=== PATIENT | female | born 1990 | race Caucasian/White ===

== ENCOUNTER 2017-09-22 23:58 | Inpatient (IN) | payer MEDICAID ==
[2017-09-23] VITALS (36 sets, daily range): BP systolic 114–131; BP diastolic 67–80; PULSE 62–89; RESP 18–20; TEMP 98.1–98.5; O2SAT 99–100
[2017-09-23 01:37] LABS: BILIRUBIN, URINE NEG (NEG); BLOOD, URINE NEG (NEG); GLUCOSE,URINE NEG (NEG); KETONE, URINE NEG (NEG); NITRITE,URINE NEG (NEG); PH, URINE 6.5 (5.0-8.5); SQUAMOUS EPITHELIAL CELL URINE 6 /hpf (0-5); URINE COLOR LIGHT-YELLOW (YELLW/STRAW); URINE LEUKOCYTE ESTERASE NEG (NEG)
[2017-09-23] MEDS ORDERED: LACTATED RINGER'S 1000 ML INJ 1,000 ML IV PRN (09:13)
[2017-09-23] MEDS ORDERED: LACTATED RINGER'S 1000 ML INJ 1,000 ML IV SCH ×3 (09:13→16:46)
[2017-09-23] MEDS ORDERED: SODIUM CHLORID 0.9% 500 ML INJ 500 ML IV PRN (09:15)
[2017-09-23] MEDS ORDERED: LIDOCAINE HCL 1% 50 ML VIAL I-DERMAL PRN (09:15)
[2017-09-23] MEDS ORDERED: CITRIC ACID-SODIUM CITRATE LIQ 30 ML UDC PO SCH (09:15)
[2017-09-23] MEDS ORDERED: ONDANSETRON HCL 4 MG/2 ML VIAL IV PUSH PRN ×2 (09:15→12:00)
[2017-09-23] MEDS ORDERED: LACTATED RINGER'S 1000 ML INJ 1,000 ML IV ONE ×2 (09:17→12:00)
[2017-09-23] MEDS ORDERED: SODIUM CHLOR 0.9% 1000 ML INJ 1,000 ML IV PRN (09:33)
--- NOTE | 2017-09-23 09:45 | PD ---
HPI Chief Complaint CTX Date Seen: Sep 23, 2017 Time Seen: 07:00 Travel History International Travel<30 Days: No Contact w/Intl Traveler<30Days: No History of Present Illness HPI Patient is a 27 year old who presents to OB ED with contractions x 2 days. EDC 09/25/2017. She denies leakage of fluid, vaginal bleeding. She feels baby moving regularly. She denies LINN/N/V/D/fever/sick contacts/SOB/calf pain/ dizziness/seeing spots. OB care is with Dr. Johnston in [place] since early gestation, with US in first trimester for dating, but per pt he will no longer see her. Medical records pending from there. Labs reviewed from [facility], everything normal but GBS unknown. Patient is Turkish-speaking. Electron Gun Inspector Marion [id number] used during interview, consents signed. History Past Medical History Medical History: Denies Significant Hx Obstetric History Obstetric History G1: 11 yr, failure to progress, 3300g G2: 4 yr, failure to progress, 3572g G3: current denies previous or current HTN, DM in or otherwise denies history of STIs, denies hx HSV Past Surgical History Narrative Surgical CS x 2 Family History Family History: Negative Social History Alcohol Use: No Tobacco Use: No Substance Abuse: No Allergies-Medications (Allergen,Severity, Reaction): Coded Allergies: No Known Allergies (Unverified , 09/23/17) Narrative Medication No medications at home Review of Systems Except as stated in HPI: all other systems reviewed are Neg Physical Exam Narrative GENERAL: Well-nourished, well-developed patient. SKIN: Warm and dry. HEAD: Normocephalic and atraumatic. EYES: No scleral icterus. No injection or drainage. ENT: No nasal drainage noted. Mucous membranes pink. Airway patent. NECK: Supple, trachea midline. No JVD. CARDIOVASCULAR: Regular rate and rhythm without murmurs, gallops, or rubs. RESPIRATORY: Breath sounds equal bilaterally. No accessory muscle use. ABDOMEN/GI: Abdomen soft, non-tender, bowel sounds present, no rebound, no guarding. Gravid to 40 weeks. GENITOURINARY: External Genitalia: intact and normal in appearance. Cervix closed, thick, high. Presentation: vertex Membranes: intact Uterine Contractions: every 7 min FHT's: Category: 2 Baseline: 140s Reactive: 160s Variability: mod Decels: one variable vs prolonged decel, disconnected strip for 2 min, good return. Otherwise Cat 1 tracing EXTREMITIES: No cyanosis or edema. BACK: Nontender without obvious deformity. No CVA tenderness. NEUROLOGICAL: Awake and alert. Motor and sensory grossly within normal limits. Five out of 5 muscle strength in all muscle groups. Normal speech. Data Data Vital Signs Reviewed: Yes Orders Orders Urinalysis - C+S If Indicated (09/23/17 01:20) Ob/Psych Drug Screen, Urine (09/23/17 01:20) Case Management Consult (09/23/17 ) Ob (2e) Additional Admit Info (09/23/17 09:14) Admit To Inpatient (09/23/17 ) Code Status (09/23/17 09:13) Vital Signs (Adult) .Per protocol (09/23/17 09:13) Activity Oob Ad Eugenie (09/23/17 09:13) Heart (09/23/17 09:13) Amnioinfusion (09/23/17 09:13) Urinary Catheter Management .ONCE (09/23/17 09:13) Diet Npo (09/23/17 Breakfast) Lactated Ringer's 1000 Ml Inj (Lr 1000 M (09/23/17 09:13) Lactated Ringer's 1000 Ml Inj (Lr 1000 M (09/23/17 09:13) Sodium Chlorid 0.9% 500 Ml Inj (Ns 500 M (09/23/17 09:15) Sodium Chlor 0.9% 1000 Ml Inj (Ns 1000 M (09/23/17 09:33) Lidocaine 1% Inj (50 Ml) (Xylocaine 1% I (09/23/17 09:15) Citric Acid-Sodium Citrate Liq (Bicitra (09/23/17 09:15) Ondansetron Inj (Zofran Inj) (09/23/17 09:15) Fentanyl Inj (Fentanyl Inj) (09/23/17 09:15) Fentanyl Inj (Fentanyl Inj) (09/23/17 09:15) Complete Blood Count With Diff (09/23/17 09:13) Hold Clot (09/23/17 09:13) Abo/Rh Blood Type (09/23/17 09:13) Inpatient Certification (09/23/17 ) Heart (09/23/17 09:17) Lactated Ringer's 1000 Ml Inj (Lr 1000 M (09/23/17 09:17) Lactated Ringer's 1000 Ml Inj (Lr 1000 M (09/23/17 09:47) Cefazolin 2 Gm Premix (Ancef 2 Gm Premix (09/23/17 10:30) Type And Screen (09/23/17 09:19) Labs GBS unknown Laboratory Tests Test 09/23/17 01:00 Urine Color LIGHT-YELLOW Urine Turbidity CLEAR Urine pH 6.5 Urine Specific [place] 1.013 Urine Protein TRACE Urine Glucose (UA) NEG Urine Ketones NEG Urine Occult Blood NEG Urine Nitrite NEG Urine Bilirubin NEG Urine Urobilinogen LESS THAN 2.0 Urine Leukocyte Esterase NEG Urine RBC LESS THAN 1 Urine WBC LESS THAN 1 Urine Squamous Epithelial Cells 6 Microscopic Urinalysis Comment CULT NOT INDICATED Urine Opiates Screen NEG Urine Barbiturates Screen NEG Urine Amphetamines Screen NEG Urine Benzodiazepines Screen NEG Urine Cocaine Screen NEG Urine Cannabinoids Screen NEG MDM Medical Record Reviewed: Yes Narrative Course / MDM 27 year old with history of repeat CS who presents to OB ED with contractions x 2 days. EDC 09/25/2017. No insurance. Presenting with contractions. Will admit for repeat CS. Intrauterine : Category 2 tracing, resolved but nonreassuring, one variable vs prolonged decel , disconnected strip for 2 min, good return. Otherwise Cat 1 tracing. Repeat CS x 2 - needs repeat CS Consents signed CBC, UA, UDS ordered per protocol U/A pending IV fluids Monitor heart tones Routine care GBS unknown Social: Undocumented. No insurance. Social work consult placed and patient will be candidate for emergency Medicaid. FERNANDAW Dr. Becca Irwin,Rosaline Funez MD Sep 23, 2017 09:45
[2017-09-23 09:54] LABS: AUTOMATED NEUTROPHIL # 3.5 TH/MM3 (1.8-7.7); BASOPHIL % 0.5 % (0.0-2.0); EOSINOPHIL # 0.1 TH/MM3 (0-0.4); EOSINOPHIL % 1.3 % (0.0-4.0); HEMATOCRIT 30.5 % (35.0-46.0); HEMOGLOBIN 10.2 GM/DL (11.6-15.3); LYMPH % 37.5 % (9.0-44.0); LYMPHOCYTE # 2.5 TH/MM3 (1.0-4.8); MEAN CELL VOLUME 77.3 FL (80.0-100.0); MEAN CORPUSCULAR HGB CONC 33.6 % (32.0-36.0); MEAN PLATELET VOLUME 8.4 FL (7.0-11.0); MONO % 8.4 % (0.0-8.0); MONOCYTE # 0.6 TH/MM3 (0-0.9); NEUT % 52.3 % (16.0-70.0); PLATELET COUNT 280 TH/MM3 (150-450); RED BLOOD COUNT 3.94 MIL/MM3 (4.00-5.30); RED CELL DISTRIBUTION WIDTH 14.4 % (11.6-17.2); WHITE BLOOD COUNT 6.7 TH/MM3 (4.0-11.0)
--- NOTE | 2017-09-23 10:16 | HHI.HP ---
HPI Chief Complaint Repeat CS, Nonreassuring FHT, 39 5/7 weeks gestation Date Seen: Sep 23, 2017 Time Seen: 10:12 Travel History International Travel<30 Days: No Contact w/Intl Traveler<30Days: No History of Present Illness HPI Patient is a 27 year old who presents to OB ED with contractions x 2 days. EDC 09/25/2017. She denies leakage of fluid, vaginal bleeding. She feels baby moving regularly. She denies LINN/N/V/D/fever/sick contacts/SOB/calf pain/ dizziness/seeing spots. OB care is with Dr. Johnston in [place] since early gestation, with US in first trimester for dating, but per pt he will no longer see her. Medical records pending from there. Labs reviewed from [facility], everything normal but GBS unknown. Patient is Mongolian-speaking. Residential Gas Heat Technician Marion [id number] used during interview, consents signed. History Past Medical History Medical History: Denies Significant Hx Obstetric History Obstetric History G1: 11 yr, failure to progress, 3300g G2: 4 yr, failure to progress, 3572g G3: current denies previous or current HTN, DM in or otherwise denies history of STIs, denies hx HSV Past Surgical History Narrative Surgical CS x 2 Family History Family History: Negative Social History Alcohol Use: No Tobacco Use: No Substance Abuse: No Allergies-Medications (Allergen,Severity, Reaction): Coded Allergies: No Known Allergies (Unverified , 09/23/17) Narrative Medication No medications Review of Systems Except as stated in HPI: all other systems reviewed are Neg Physical Exam Narrative GENERAL: Well-nourished, well-developed patient. SKIN: Warm and dry. HEAD: Normocephalic and atraumatic. EYES: No scleral icterus. No injection or drainage. ENT: No nasal drainage noted. Mucous membranes pink. Airway patent. NECK: Supple, trachea midline. No JVD. CARDIOVASCULAR: Regular rate and rhythm without murmurs, gallops, or rubs. RESPIRATORY: Breath sounds equal bilaterally. No accessory muscle use. ABDOMEN/GI: Abdomen soft, non-tender, bowel sounds present, no rebound, no guarding. Gravid to 40 weeks. GENITOURINARY: External Genitalia: intact and normal in appearance. Cervix closed, thick, high. Presentation: vertex Membranes: intact Uterine Contractions: every 7 min FHT's: Category: 2 Baseline: 140s Reactive: 160s Variability: mod Decels: one variable vs prolonged decel, disconnected strip for 2 min, good return. Otherwise Cat 1 tracing EXTREMITIES: No cyanosis or edema. BACK: Nontender without obvious deformity. No CVA tenderness. NEUROLOGICAL: Awake and alert. Motor and sensory grossly within normal limits. Five out of 5 muscle strength in all muscle groups. Normal speech. Caprini VTE Risk Assessment Caprini VTE Risk Assessment: Mod/High Risk (score >= 2) VTE Pharm Contraindication: Caprini Risk Assessment Model Point Value = 1 Point Value = 2 Point Value = 3 Point Value = 5 Age 41-60 Minor surgery BMI > 25 kg/m2 Swollen legs Varicose veins or History of unexplained or recurrent spontaneous Oral contraceptives or hormone replacement Sepsis (< 1 month) Serious lung disease, including pneumonia (< 1 month) Abnormal pulmonary function Acute myocardial infarction Congestive heart failure (< 1 month) History of inflammatory bowel disease Medical patient at bed rest Age 61-74 Arthroscopic surgery Major open surgery (> 45 min) Laparoscopic surgery (> 45 min) Malignancy Confined to bed (> 72 hours) Immobilizing plaster cast Central venous access Age >= 75 History of VTE Family history of VTE Factor V Leiden Prothrombin [id number] Lupus anticoagulant Anticardiolipin antibodies Elevated serum homocysteine Heparin-induced thrombocytopenia Other congenital or acquired thrombophilia Stroke (< 1 month) Elective arthroplasty Hip, pelvis, or leg fracture Acute spinal cord injury (< 1 month) Prophylaxis Regimen Total Risk Factor Score Risk Level Prophylaxis Regimen 0-1 Low Early ambulation 2 Moderate Order ONE of the following: *Sequential Compression Device (SCD) *Heparin 5000 units SQ BID 3-4 Higher Order ONE of the following medications: *Heparin 5000 units SQ TID *Enoxaparin/Lovenox 40 mg SQ daily (WT < 150 kg, CrCl > 30 mL/min) *Enoxaparin/Lovenox 30 mg SQ daily (WT < 150 kg, CrCl > 10-29 mL/min) *Enoxaparin/Lovenox 30 mg SQ BID (WT < 150 kg, CrCl > 30 mL/min) AND/OR *Sequential Compression Device (SCD) 5 or more Highest Order ONE of the following medications: *Heparin 5000 units SQ TID (Preferred with Epidurals) *Enoxaparin/Lovenox 40 mg SQ daily (WT < 150 kg, CrCl > 30 mL/min) *Enoxaparin/Lovenox 30 mg SQ daily (WT < 150 kg, CrCl > 10-29 mL/min) *Enoxaparin/Lovenox 30 mg SQ BID (WT < 150 kg, CrCl > 30 mL/min) AND *Sequential Compression Device (SCD) Data Data Vital Signs Reviewed: Yes Orders Orders Urinalysis - C+S If Indicated (09/23/17 01:20) Ob/Psych Drug Screen, Urine (09/23/17 01:20) Case Management Consult (09/23/17 ) Ob (2e) Additional Admit Info (09/23/17 09:14) Admit To Inpatient (09/23/17 ) Code Status (09/23/17 09:13) Vital Signs (Adult) .Per protocol (09/23/17 09:13) Activity Oob Ad Eugenie (09/23/17 09:13) Heart (09/23/17 09:13) Amnioinfusion (09/23/17 09:13) Urinary Catheter Management .ONCE (09/23/17 09:13) Diet Npo (09/23/17 Breakfast) Lactated Ringer's 1000 Ml Inj (Lr 1000 M (09/23/17 09:13) Lactated Ringer's 1000 Ml Inj (Lr 1000 M (09/23/17 09:13) Sodium Chlorid 0.9% 500 Ml Inj (Ns 500 M (09/23/17 09:15) Sodium Chlor 0.9% 1000 Ml Inj (Ns 1000 M (09/23/17 09:33) Lidocaine 1% Inj (50 Ml) (Xylocaine 1% I (09/23/17 09:15) Citric Acid-Sodium Citrate Liq (Bicitra (09/23/17 09:15) Ondansetron Inj (Zofran Inj) (09/23/17 09:15) Fentanyl Inj (Fentanyl Inj) (09/23/17 09:15) Fentanyl Inj (Fentanyl Inj) (09/23/17 09:15) Complete Blood Count With Diff (09/23/17 09:13) Inpatient Certification (09/23/17 ) Heart (09/23/17 09:17) Lactated Ringer's 1000 Ml Inj (Lr 1000 M (09/23/17 09:17) Lactated Ringer's 1000 Ml Inj (Lr 1000 M (09/23/17 09:47) Cefazolin Inj (Ancef Inj) (09/23/17 10:30) Type And Screen (09/23/17 09:19) Labs GBS unknown Laboratory Tests Test 09/23/17 01:00 09/23/17 09:40 Urine Color LIGHT-YELLOW Urine Turbidity CLEAR Urine pH 6.5 Urine Specific [place] 1.013 Urine Protein TRACE Urine Glucose (UA) NEG Urine Ketones NEG Urine Occult Blood NEG Urine Nitrite NEG Urine Bilirubin NEG Urine Urobilinogen LESS THAN 2.0 Urine Leukocyte Esterase NEG Urine RBC LESS THAN 1 Urine WBC LESS THAN 1 Urine Squamous Epithelial Cells 6 Microscopic Urinalysis Comment CULT NOT INDICATED Urine Opiates Screen NEG Urine Barbiturates Screen NEG Urine Amphetamines Screen NEG Urine Benzodiazepines Screen NEG Urine Cocaine Screen NEG Urine Cannabinoids Screen NEG White Blood Count 6.7 Red Blood Count 3.94 Hemoglobin 10.2 Hematocrit 30.5 Mean Corpuscular Volume 77.3 Mean Corpuscular Hemoglobin 26.0 Mean Corpuscular Hemoglobin Concent 33.6 Red Cell Distribution Width 14.4 Platelet Count 280 Mean Platelet Volume 8.4 Neutrophils (%) (Auto) 52.3 Lymphocytes (%) (Auto) 37.5 Monocytes (%) (Auto) 8.4 Eosinophils (%) (Auto) 1.3 Basophils (%) (Auto) 0.5 Neutrophils # (Auto) 3.5 Lymphocytes # (Auto) 2.5 Monocytes # (Auto) 0.6 Eosinophils # (Auto) 0.1 Basophils # (Auto) 0.0 CBC Comment DIFF FINAL Differential Comment Assessment/Plan Problem List: (1) History of ICD Codes: Z98.891 - History of uterine scar from previous surgery Status: Acute (2) with 39 completed weeks gestation ICD Codes: Z3A.39 - 39 weeks gestation of Assessment and Plan 27 year old with history of repeat CS who presents to OB ED with contractions x 2 days. EDC 09/25/2017. No insurance. Presenting with contractions. Admitted for CS. Intrauterine : Category 2 tracing, resolved but nonreassuring, one variable vs prolonged decel , disconnected strip for 2 min, good return. Otherwise Cat 1 tracing. Repeat CS x 2 - needs repeat CS Consents signed CBC, UA, UDS ordered per protocol U/A pending IV fluids Monitor heart tones Routine care GBS unknown Social: Undocumented. No insurance. Social work consult placed and patient will be candidate for emergency Medicaid. SDW Dr. Hudson, Dr. Nagy to perform CS Discharge Planning Likely 2-3 days after CS Rosaline Irwin MD Sep 23, 2017 10:16
[2017-09-23] MEDS ORDERED: CEFAZOLIN INJ 2,000 MG in SODIUM CHLORIDE 0.9% INJ 100 ML IV SCH (10:30)
[2017-09-23] MEDS ORDERED: MORPHINE SULFATE PF 5 MG/10 ML VIAL ONE (10:32)
[2017-09-23] MEDS ORDERED: ACETAMINOPHEN 1000 MG/100 ML 100 ML IV ONE (10:33)
[2017-09-23] MEDS ORDERED: EPIDURAL-DO NOT ADMINISTER ANTICOAGULANTS PRN (10:37)
[2017-09-23] MEDS ORDERED: EPIDURAL-DIPHENHYDRAMINE HCL 50 MG CAP PO PRN (10:37)
[2017-09-23] MEDS ORDERED: EPIDURAL-NALOXONE HCL 0.4 MG/ML AMP IV PUSH PRN (10:37)
[2017-09-23] MEDS ORDERED: EPIDURAL-DIPHENHYDRAMINE HCL 50 MG/ML VIAL IV PUSH PRN (10:37)
[2017-09-23] MEDS ORDERED: EPIDURAL-NO SYSTEMIC NARCOTICS PRN (10:37)
--- NOTE | 2017-09-23 11:46 | PD.OB.DELI ---
Procedure Note Section Procedure Pre Op Diagnosis: (1) with 39 completed weeks gestation (2) History of Post Op Diagnosis: Performed by Ashlyn Nagy Procedure: Repeat Low Transverse Sec Indication for delivery: Desired elective repeat Informed consent obtained: For anesthesia, For procedure Confirmed correct: Patient, Procedure, Site, Time-out taken Anesthesia: Spinal Medication prior to procedure: As documented in eMAR, Antibiotics, IV Urinary catheter: Inserted using sterile technique, To dependent drainage Sterile preparation: Duraprep Position: Supine with wedge to left side Operative Features Skin Incision: Pfannenstiel Uterine Incision: Low transverse w/knife / blunt ext Membranes Ruptured: Artificially Presentation: Occiput anterior Delivery date: Sep 23, 2017 Delivery time: 11:07 Delivery of infant: Assisted (Vacuum assisted) : Male One Minute : 9 Five Minute : 9 Weight: 3740 Status of infant: Viable Placenta delivered: Intact Medications: Antibiotics, Oxytocin Estimated blood loss: 600 Procedure tolerated: Well Maternal Condition: Stable Condition: Stable Ashlyn Nagy MD Sep 23, 2017 11:46
[2017-09-23] MEDS ORDERED: DEXAMETHASONE SOD PHOS 4 MG/ML VIAL IV ONE (12:00)
[2017-09-23] MEDS ORDERED: oxyCODONE/ACETAMINOPHEN 5 MG/325 MG TAB PO PRN (12:00)
[2017-09-23] MEDS ORDERED: ONDANSETRON HCL 4 MG/2 ML VIAL IV ONE (12:00)
[2017-09-23] MEDS ORDERED: SODIUM CHLORIDE 0.9% FLUSH 10 ML FLUSH IV FLUSH PRN (12:00)
[2017-09-23] MEDS ORDERED: STERILE WATER FOR INJECTION 20 ML VIAL IV ONE (12:00)
[2017-09-23] MEDS ORDERED: SIMETHICONE 80 MG CHEWABLE TAB PO PRN (12:00)
[2017-09-23] MEDS ORDERED: DOCUSATE SODIUM 50 MG/SENNA 8.6 MG TAB PO PRN (12:00)
[2017-09-23] MEDS ORDERED: OXYTOCIN 30 UNITS-500ML PREMIX 500 ML IV ONE (12:00)
[2017-09-23] MEDS ORDERED: ceFAZolin INJ 1,000 MG VIAL IV ONE (12:00)
[2017-09-23] MEDS ORDERED: PROPOFOL 200 MG/20 ML AMP IV ONE (12:00)
[2017-09-23] MEDS ORDERED: OXYTOCIN 10 UNIT/ML AMP IV ONE (12:00)
--- NOTE | 2017-09-23 12:09 | MP ---
cc: Ashlyn Nagy MD DATE OF OPERATION: 09/23/2017 PREOPERATIVE DIAGNOSES: 1. 39 weeks' gestation. 2. Previous section x 2. 3. Desires permanent sterilization. POSTOPERATIVE DIAGNOSES: 1. 39 weeks' gestation. 2. Previous section x 2. 3. Desires permanent sterilization. PROCEDURE PERFORMED: Repeat low transverse section without extension, bilateral midsegment salpingectomy . SURGEON: Ashlyn Nagy MD ESTIMATED BLOOD LOSS: 600 mL. ANESTHETIC: Spinal. MEDICATIONS: Ancef 2 grams given preoperatively. COMPLICATIONS: None. COUNTS: Correct x 3. DRAINS: Bryant to gravity. FINDINGS: 1. Normal uterus, tubes and ovaries. 2. Adhesions between the omentum and the anterior peritoneum. 3. Infant male, vertex presentation with clear amniotic fluid. Apgars were 9 and 9, weight was 8 pounds 4 ounces, stable, taken to nursery. DESCRIPTION OF PROCEDURE: The patient was taken back to the operating room, prepped and draped in usual sterile fashion, placed in dorsal supine position with a wedge to the left side. After adequate anesthetic was obtained, a Pfannenstiel incision was made through the skin and taken down to the fascia. The fascia was nicked in the midline and extended bilaterally and then taken off the rectus muscles. Muscles were divided in the midline. Anterior peritoneum was entered. Omental adhesions were noted and taken down sharply with the Bovie. Vesicouterine peritoneum was taken down. A transverse hysterotomy incision was made blunt and extended bilaterally. Infant had a large head and difficult to deliver into the operative field, so an assisted vacuum was utilized for approximately 15 seconds. The baby was delivered into the operative field. Mouth and nares were made clear. The rest of the body was delivered, a 45 second cord clamping delay was accomplished and the placenta was delivered spontaneously. Endometrial cavity was curetted with a moist laparotomy sponge. The hysterotomy incision was repaired using a running locking #1 chromic suture with good hemostasis at closure. Attention was then directed to the fallopian tubes. On the left tube, a window was made in the mesosalpinx and two #1 chromic sutures were placed and the intervening 2 cm segment was removed. The contralateral tube was approached in a similar manner. Some bleeders from the previous adhesiolysis were made hemostatic with the Bovie. The fascia was closed with #1 PDS. Subcutaneous tissue was made hemostatic with the Bovie and closed with 3-0 plain gut. A subcuticular suture was placed into the skin. The patient tolerated the procedure well. She was taken back to the recovery room in good condition. MD LINDA Armando/SHELIA , 11:51 AM , 12:08 PM
[2017-09-23] MEDS ORDERED: OXYTOCIN 30 UNITS-500ML PREMIX 500 ML ONE (13:00)
[2017-09-23] MEDS ORDERED: SODIUM CHLORIDE 0.9% FLUSH 10 ML FLUSH IV FLUSH SCH (21:00)
[2017-09-23] MEDS ORDERED: OXYTOCIN 30 UNITS-500ML PREMIX 500 ML IV PRN (22:00)
[2017-09-24 00:15] VITALS: BP 113/71; PULSE 66; RESP 19; TEMP 98.1
[2017-09-24 03:55] VITALS: BP 116/63; PULSE 75; RESP 18; TEMP 98.1
[2017-09-24 05:51] LABS: AUTOMATED NEUTROPHIL # 5.4 TH/MM3 (1.8-7.7); BASOPHIL % 0.4 % (0.0-2.0); EOSINOPHIL % 0.4 % (0.0-4.0); HEMATOCRIT 27.1 % (35.0-46.0); HEMOGLOBIN 9.3 GM/DL (11.6-15.3); LYMPH % 31.3 % (9.0-44.0); LYMPHOCYTE # 2.8 TH/MM3 (1.0-4.8); MEAN CELL VOLUME 77.2 FL (80.0-100.0); MEAN CORPUSCULAR HEMOGLOBIN 26.5 PG (27.0-34.0); MEAN CORPUSCULAR HGB CONC 34.3 % (32.0-36.0); MEAN PLATELET VOLUME 8.4 FL (7.0-11.0); MONO % 7.7 % (0.0-8.0); MONOCYTE # 0.7 TH/MM3 (0-0.9); NEUT % 60.2 % (16.0-70.0); PLATELET COUNT 251 TH/MM3 (150-450); RED BLOOD COUNT 3.51 MIL/MM3 (4.00-5.30); RED CELL DISTRIBUTION WIDTH 14.3 % (11.6-17.2)
--- NOTE | 2017-09-24 07:18 | HHI.OB ---
Subjective Post Operative Day: 1 Remarks Postoperative[day # 1. AFVSS overnight. Incision not draining. Decreased lochia. Denies dysuria. No breast tenderness. She is feeding the baby via breast. Appetite good. No nausea or vomiting. Patient has had a bowel movement. Ambulating well. Denies calf pain or shortness of breath. Otherwise , she is doing well this morning and has no other concerns. Objective Vitals/I&O Vital Signs Date Time Temp Pulse Resp B/P (MAP) Pulse Ox O2 Delivery O2 Flow Rate FiO2 09/24/17 03:55 98.1 75 18 116/63 (80) 09/24/17 00:15 98.1 66 19 113/71 (85) 09/23/17 21:08 98.1 75 20 115/67 (83) 09/23/17 12:50 18 99 09/23/17 12:49 76 125/74 (91) 09/23/17 12:32 80 18 114/71 (85) 100 09/23/17 12:24 62 18 120/74 (89) 100 09/23/17 12:01 124/74 (91) 09/23/17 11:59 67 20 100 09/23/17 11:55 100 09/23/17 11:47 98.5 74 20 131/80 (97) 09/23/17 10:10 86 09/23/17 10:05 79 09/23/17 10:00 79 09/23/17 09:55 79 09/23/17 09:50 79 09/23/17 09:40 85 09/23/17 09:35 83 09/23/17 09:30 88 09/23/17 09:25 86 09/23/17 09:20 87 09/23/17 09:15 85 09/23/17 09:10 84 09/23/17 09:05 85 09/23/17 09:00 89 09/23/17 08:55 88 09/23/17 08:50 86 09/23/17 08:45 85 09/23/17 08:40 77 09/23/17 08:35 89 09/23/17 08:30 82 09/23/17 08:25 85 09/23/17 08:20 86 09/23/17 08:15 87 09/23/17 08:10 84 09/23/17 08:07 84 09/23/17 08:05 86 09/23/17 08:00 77 Result Diagram: 09/24/17 0527 Objective Remarks GENERAL: Well-nourished, well-developed patient. CARDIOVASCULAR: Regular rate and rhythm without murmurs, gallops, or rubs. RESPIRATORY: Breath sounds equal bilaterally. No accessory muscle use. ABDOMEN/GI: Abdomen soft, non-tender, bowel sounds present. Incision: Dry and intact. Dried blood noted on patient's left. Fundus: Firm, non-tender at umbilicus. GENITOURINARY: Light to moderate bleeding. EXTREMITIES: No cyanosis or edema, non-tender, without signs of DVT. Medications and IVs Current Medications Medications (Trade) Dose Ordered Sig/Hossein Route Start Time Stop Time Status Last Admin Lactated Ringer's 1,000 ml @ 125 mls/hr Q8H IV 09/23/17 09:13 Lactated Ringer's 1,000 ml @ 3,000 mls/hr Q20M PRN IV 09/23/17 09:13 Sodium Chloride 500 ml @ 1,000 mls/hr ONCE PRN IV 09/23/17 09:15 09/24/17 09:14 Sodium Chloride 1,000 ml @ 100 mls/hr Q10H PRN IV 09/23/17 09:33 (Xylocaine 1% Inj (50 ml)) 0.1 ml UNSCH X1 PRN I-DERMAL 09/23/17 09:15 09/26/17 09:14 (Bicitra Liq) 30 ml SEISMOGRAPH HELPER PO 09/23/17 09:15 09/27/17 09:14 09/23/17 10:15 (Zofran Inj) 4 mg Q6H PRN IV PUSH 09/23/17 09:15 (fentaNYL INJ) 50 mcg Q1H PRN IV PUSH 09/23/17 09:15 (fentaNYL INJ) 100 mcg Q1H PRN IV PUSH 09/23/17 09:15 Lactated Ringer's 1,000 ml @ 150 mls/hr Q6H40M IV 09/23/17 09:47 09/23/17 10:16 Cefazolin Sodium 2000 mg/Sodium Chloride 120 ml @ 240 mls/hr SEISMOGRAPH HELPER IV 09/23/17 10:30 09/27/17 10:29 Lactated Ringer's 1,000 ml @ 100 mls/hr Q10H IV 09/23/17 16:46 09/24/17 12:45 09/23/17 20:00 Oxytocin 500 ml @ 100 mls/hr UNSCH X1 PRN IV 09/23/17 22:00 09/24/17 21:59 (NS Flush) 2 ml BID IV FLUSH 09/23/17 21:00 (NS Flush) 2 ml UNSCH PRN IV FLUSH 09/23/17 12:00 (Mylicon Chew) 80 mg QID PRN PO 09/23/17 12:00 (Motrin) 600 mg Q6H PRN PO 09/23/17 12:00 (Percocet 5-325 Mg) 1 tab Q4H PRN PO 09/23/17 12:00 (Percocet 5-325 Mg) 2 tab Q4H PRN PO 09/23/17 12:00 (Pallavi-Colace) 2 tab Q12H PRN PO 09/23/17 12:00 (M-M-R Ii Inj) 0.5 ml ONCE ONCE SQ 09/24/17 16:00 09/24/17 16:01 (Boostrix Inj) 0.5 ml ONCE ONCE IM 09/24/17 16:00 09/24/17 16:01 (Zofran Inj) 4 mg Q6H PRN IV PUSH 09/23/17 12:00 Miscellaneous Information NO SYSTEMIC NARCOTICS TO BE GIVEN FO... UNSCH PRN .XX 09/23/17 10:37 09/24/17 10:36 (Narcan Inj) 0.4 mg UNSCH PRN IV PUSH 09/23/17 10:37 09/24/17 10:36 (Benadryl Inj) 25 mg Q6H PRN IV PUSH 09/23/17 10:37 09/24/17 10:36 (Benadryl) 50 mg Q6H PRN PO 09/23/17 10:37 09/24/17 10:36 Miscellaneous Information ALL NURSING DEPARTMENTS UNSCH PRN .XX 09/23/17 10:37 09/24/17 10:36 Assessment/Plan Problem List: (1) History of ICD Codes: Z98.891 - History of uterine scar from previous surgery Status: Acute (2) with 39 completed weeks gestation ICD Codes: Z3A.39 - 39 weeks gestation of Assessment and Plan 27 year old female who is POD #1 s/p repeat CXN. -Continue routine care. -Percocet and Motrin PRN pain. -Encouraged OOB. Advised pelvic rest for 6 wks. Will need a f/u appt. in 1 wk for incision check. -Re: ctrl, she has BTL. -Anticipate discharge 1-2 days. Social: Undocumented. No insurance. Social work consult placed and patient will be candidate for emergency Medicaid. JESSICA Nagy Discharge Planning Likely tomorrow Rosaline Irwin MD Sep 24, 2017 07:18
[2017-09-24] MEDS: IBUPROFEN 600 MG TAB PO PRN ×2 (07:36→18:36)
[2017-09-24] MEDS: oxyCODONE/ACETAMINOPHEN 5 MG/325 MG TAB PO PRN ×3 (10:45→22:27)
[2017-09-24] MEDS ORDERED: DIPHTH/TETANUS/ACEL PERTUSSIS (BOOSTER) 0.5 ML VIAL/PFS IM ONE (16:00)
[2017-09-24] MEDS ORDERED: MEASLES, MUMPS, RUBELLA VACCINE 0.5 ML VIAL SQ ONE (16:00)
[2017-09-24 20:00] VITALS: BP 92/49; PULSE 94; RESP 16; TEMP 98.8; O2SAT 98
[2017-09-24 22:00] VITALS: BP 108/70; PULSE 86; RESP 18
[2017-09-25 07:44] VITALS: BP 136/79; PULSE 100; RESP 17; RESP 9; TEMP 98.2
[2017-09-25] MEDS: IBUPROFEN 600 MG TAB PO PRN (08:06)
[2017-09-25] MEDS: oxyCODONE/ACETAMINOPHEN 5 MG/325 MG TAB PO PRN (08:06)
[2017-09-25] MEDS ORDERED: OXYC1TAB63 PO (08:57)
--- NOTE | 2017-09-25 08:58 | HHI.DCPOC ---
Discharge Care Plan Diagnosis: (1) with 39 completed weeks gestation (2) History of Report Symptoms to Your Doctor -Temperature above 100.5 degrees -Redness, of incision or excessive or foul smelling drainage -Unusual pain or calf pain -Increased vaginal bleeding -Painful or difficulty urinating -Feelings of extreme sadness or anxiety after 2 weeks Goals to Promote Your Health * To prevent worsening of your condition and complications * To maintain your health at the optimal level Directions to Meet Your Goals Take your medications as prescribed Follow your dietary instruction Follow activity as directed Ensure plenty of rest for recovery Drink fluids for hydration Keep your appointments as scheduled Take your immunizations and boosters as scheduled If your symptoms worsen call your PCP, if no PCP go to Urgent Care Center or Emergency Room Smoking is Dangerous to Your Health. Avoid second hand smoke Call the 24-hour crisis hotline for domestic abuse at Rosaline Irwin MD R2 Sep 25, 2017 08:58
--- NOTE | 2017-09-25 10:11 | HHI.OB ---
Subjective Post Operative Day: 2 Remarks Postoperative day # 2. AFVSS overnight. Incision not draining. Decreased lochia. Denies dysuria. No breast tenderness. She is feeding the baby via breast. Appetite good. No nausea or vomiting. Patient has had a bowel movement. Ambulating well. Denies calf pain or shortness of breath. Otherwise , she is doing well this morning and has no other concerns. Educational Programming Director [employer] used during interview and exam. Objective Vitals/I&O Vital Signs Date Time Temp Pulse Resp B/P (MAP) Pulse Ox O2 Delivery O2 Flow Rate FiO2 09/25/17 07:44 17 09/25/17 07:44 98.2 100 9 136/79 (98) 09/24/17 22:00 86 18 108/70 (83) 09/24/17 20:00 92/49 (63) 09/24/17 20:00 98.8 94 16 98 09/24/17 20:00 92/49 (63) Result Diagram: 09/24/17 0527 Objective Remarks GENERAL: Well-nourished, well-developed patient. CARDIOVASCULAR: Regular rate and rhythm without murmurs, gallops, or rubs. RESPIRATORY: Breath sounds equal bilaterally. No accessory muscle use. ABDOMEN/GI: Abdomen soft, non-tender, bowel sounds present. Incision: Dry and intact. Fundus: Firm, non-tender at umbilicus. GENITOURINARY: Light to moderate bleeding. EXTREMITIES: No cyanosis or edema, non-tender, without signs of DVT. Medications and IVs Current Medications Medications (Trade) Dose Ordered Sig/Hossein Route Start Time Stop Time Status Last Admin Lactated Ringer's 1,000 ml @ 125 mls/hr Q8H IV 09/23/17 09:13 Lactated Ringer's 1,000 ml @ 3,000 mls/hr Q20M PRN IV 09/23/17 09:13 Sodium Chloride 1,000 ml @ 100 mls/hr Q10H PRN IV 09/23/17 09:33 (Xylocaine 1% Inj (50 ml)) 0.1 ml UNSCH X1 PRN I-DERMAL 09/23/17 09:15 09/26/17 09:14 (Bicitra Liq) 30 ml [employer] PO 09/23/17 09:15 09/27/17 09:14 09/23/17 10:15 (Zofran Inj) 4 mg Q6H PRN IV PUSH 09/23/17 09:15 (fentaNYL INJ) 50 mcg Q1H PRN IV PUSH 09/23/17 09:15 (fentaNYL INJ) 100 mcg Q1H PRN IV PUSH 09/23/17 09:15 Lactated Ringer's 1,000 ml @ 150 mls/hr Q6H40M IV 09/23/17 09:47 09/23/17 10:16 Cefazolin Sodium 2000 mg/Sodium Chloride 120 ml @ 240 mls/hr [employer] IV 09/23/17 10:30 09/27/17 10:29 (NS Flush) 2 ml BID IV FLUSH 09/23/17 21:00 (NS Flush) 2 ml UNSCH PRN IV FLUSH 09/23/17 12:00 (Mylicon Chew) 80 mg QID PRN PO 09/23/17 12:00 (Motrin) 600 mg Q6H PRN PO 09/23/17 12:00 09/25/17 08:06 (Percocet 5-325 Mg) 1 tab Q4H PRN PO 09/23/17 12:00 09/25/17 08:06 (Percocet 5-325 Mg) 2 tab Q4H PRN PO 09/23/17 12:00 (Pallavi-Colace) 2 tab Q12H PRN PO 09/23/17 12:00 09/24/17 18:36 (Zofran Inj) 4 mg Q6H PRN IV PUSH 09/23/17 12:00 Assessment/Plan Problem List: (1) History of ICD Codes: Z98.891 - History of uterine scar from previous surgery Status: Acute (2) with 39 completed weeks gestation ICD Codes: Z3A.39 - 39 weeks gestation of Assessment and Plan 27 year old female who is POD #2 s/p repeat CXN. -Continue routine care. -Percocet and Motrin PRN pain. -Encouraged OOB. Advised pelvic rest for 6 wks. Will need a f/u appt. in 1 wk for incision check in [place]. -Re: ctrl, she has BTL. -Anticipate discharge todayy. Social: Undocumented. No insurance. Social work consult placed and patient will be candidate for emergency Medicaid. JESSICA Hudson Discharge Planning Discharge to home today. Patient to follow up with OB ED for incision check in one week. Rosaline Irwin MD R2 Sep 25, 2017 10:11
== END 2017-09-25 13:47 | disposition home or self-care (01) | DRG 766 ==
LOC: HOBED 23:58 → H2EB 09-23 09:19 → H1EA 09-23 13:30
PROVIDERS: ADMIT Obstetrics & Gynecology; ATTEND Obstetrics & Gynecology
PROC: 10D00Z1 Extraction of Products of Conception, Low, Open Approach (ICD-10-PCS; principal; 2017-09-23)
PROC: 0UB70ZZ Excision of Bilateral Fallopian Tubes, Open Approach (ICD-10-PCS; 2017-09-23)
PROC: 0DNU0ZZ Release Omentum, Open Approach (ICD-10-PCS; 2017-09-23)
DX: O34.211 Maternal care for low transverse scar from previous cesarean delivery (principal); K66.0 Peritoneal adhesions (postprocedural) (postinfection); O76 Abnormality in fetal heart rate and rhythm complicating labor and delivery; Z37.0 Single live birth; Z3A.39 39 weeks gestation of pregnancy; Z30.2 Encounter for sterilization
CPT/HCPCS: 80307; 81001; 85025; 86850; 86900; 86901; 88302; 90715; 99283; G0481; J0131; J0690; J1100; J2274; J2405; J2590; J7120